=== PATIENT | female | born 1940 | race Caucasian/White ===

== ENCOUNTER 2018-07-11 04:16 | Emergency (ER) | payer MEDICARE, OTHER ==
[~2018-07-11] VITALS: Ht 147.3 cm; Wt 41.7 kg
--- OUTSIDE RECORDS SUMMARY | 2018-07-11 04:18 | XMS REPORT | Clinical Summary ---
Author Author [facility] Address Unknown Phone Unavailable Care Team Providers Care Control Systems Drafting Officer Name Role Phone Sophy Frank MD PCP Unavailable Allergies Comments Active Allergy Reactions Severity Noted Date Lactase Diarrhea 09/07/2013 Medications End Date Status Medication Sig Dispensed Refills Start Date Active cholecalciferol, vitamin Take 1,000 0 D3, 1,000 unit capsule Units by mouth daily. Active fenofibrate (TRICOR) 145 Take 145 mg 0 MG tablet by mouth daily. Active fexofenadine (ESTELA) Take 180 mg 0 180 MG tablet by mouth daily. Active fluticasone (FLOVENT Inhale 1 puff 0 DISKUS) 50 mcg/actuation by mouth via diskus inhaler inhaler 2 (two) times daily. Active lisinopril Take 40 mg by 0 (PRINIVIL,ZESTRIL) 40 MG mouth daily . 7 tablet Active spironolactone Take 25 mg by 0 (ALDACTONE) 25 MG tablet mouth 2 (two) 7 times daily . 09/13/2018 Active aspirin 81 MG chewable Take 1 tablet 30 tablet 1 tablet (81 mg total) 8 by mouth daily. 09/12/2018 Active carvedilol (COREG) 6.25 Take 1 tablet 60 tablet 1 MG tablet (6.25 mg 8 total) by mouth 2 (two) times daily. 09/12/2017 Discontinued atenolol (TENORMIN) 25 MG Take 25 mg by 0 tablet mouth 2 (two) times daily . 09/10/2017 Discontinued calcium carbonate-vitamin Take 1 tablet 0 D3 (CALCIUM-VITAMIN D) by mouth 2 500 mg(1,250mg) -200 unit (two) times per tablet daily with breakfast and dinner. 09/12/2017 Discontinued lisinopril-hydrochlorothi Take 1 tablet 0 azide by mouth (PRINZIDE,ZESTORETIC) daily. 20-12.5 mg per tablet 09/11/2017 Discontinued kqqy-zeqvqbekkdzye-crzvop Take 1 tablet 0 ls (THERAGRAN-M) 9 mg by mouth iron-400 mcg Tab tablet daily. 09/10/2017 Discontinued azelastine (OPTIVAR) 0.05 1 drop. 0 08/27/201 % ophthalmic solution 8 Active Problems Problem Noted Date Acute Hypertensive encephalopathy resolved 09/11/2017 Hypertensive urgency 09/11/2017 Hyperlipidemia 09/11/2017 Chronic diastolic heart failure 09/11/2017 Demand ischemia 09/11/2017 Elevated troponin 09/10/2017 Transient amnesia resolved 09/10/2017 Resolved Problems Problem Noted Date Resolved Date Hypertensive emergency 09/11/2017 09/11/2017 Hypertensive emergency 09/10/2017 09/11/2017 Headache 09/10/2017 09/11/2017 Encounters Care Team Description Date Type Specialty Marlyn Aranda MD Rivera, MD Jabier Thomas, Boris Guadarrama MD Hypertensive emergency (Primary Dx); Elevated troponin; Acute combined systolic and diastolic congestive heart failure (HCC); Acute memory impairment; Hypertensive encephalopathy; Acute intractable headache, unspecified headache type 09/10/2017 Emergency Cardiology - 09/12/2017 09/10/2017 Orders Only General Internal Medicine after 07/10/2017 Family History Medical History Relation Name Comments Diabetes Brother Heart disease Brother Diabetes Father Diabetes Mother Relation Name Status Comments Brother Father Mother Social History Date Tobacco Use Types Packs/Day Years Used Never Smoker Alcohol Use Drinks/Week oz/Week Comments No Sex Assigned at Date Recorded Not on file Industry Job Start Date Occupation Not on file Not on file Not on file Travel End Travel History Travel Start No recent travel history available. Last Filed Vital Signs Time Taken Vital Sign Reading 09/12/2017 7:00 AM CDT Blood Pressure 116/65 09/12/2017 7:00 AM CDT Pulse 67 09/12/2017 7:00 AM CDT Temperature 36.7 C (98 F) 09/12/2017 7:00 AM CDT Respiratory Rate 18 09/12/2017 7:00 AM CDT Oxygen Saturation 97% - Inhaled Oxygen - Concentration 09/12/2017 7:00 AM CDT Weight 41.1 kg (90 lb 8 oz) 09/10/2017 10:00 PM CDT Height 147.3 cm (4' 10") 09/12/2017 7:00 AM CDT Body Mass Index 18.91 Plan of Treatment Not on file Procedures Comments Procedure Name Priority Date/Time Associated Diagnosis RHYTHM STRIP - SCAN 09/13/2017 11:30 AM CDT ECHOCARDIOGRAM REPORT - 09/12/2017 SCAN 7:50 AM CDT 2D ECHO W/ DOPPLER STAT 09/11/2017 (CW/PW/COLOR) 5:35 PM CDT TROPONIN I Routine 09/11/2017 10:56 AM CDT CRITICAL CARE Routine 09/11/2017 8:16 AM CDT MR BRAIN WITHOUT IV STAT 09/11/2017 CONTRAST 6:39 AM CDT TROPONIN I Routine 09/11/2017 1:29 AM CDT HEMOGLOBIN A1C AP Routine 09/10/2017 8:03 PM CDT LIPID PANEL Routine 09/10/2017 8:03 PM CDT VITAMIN B12 AND FOLATE STAT 09/10/2017 8:02 PM CDT TSH STAT 09/10/2017 8:02 PM CDT ECG 12-LEAD STAT 09/10/2017 4:49 PM CDT URINALYSIS W/ MICROSCOPIC STAT 09/10/2017 4:34 PM CDT CBC W/PLT COUNT & AUTO STAT 09/10/2017 DIFFERENTIAL 4:33 PM CDT PT/APTT STAT 09/10/2017 4:33 PM CDT CBC W/PLT COUNT & AUTO STAT 09/10/2017 DIFFERENTIAL 4:33 PM CDT TROPONIN I STAT 09/10/2017 4:33 PM CDT B-TYPE NATRIURETIC FACTOR STAT 09/10/2017 (BNP) 4:33 PM CDT MAGNESIUM STAT 09/10/2017 4:33 PM CDT BASIC METABOLIC PANEL (7) STAT 09/10/2017 4:33 PM CDT XR CHEST 1 VIEW STAT 09/10/2017 PORTABLE/BEDSIDE 2:[address] BRAIN WITHOUT IV STAT 09/10/2017 CONTRAST 2:15 PM CDT after 07/10/2017 Results * RHYTHM STRIP - SCAN (09/13/2017 11:30 AM CDT) Narrative Performed At * ECHOCARDIOGRAM REPORT - SCAN (09/12/2017 7:50 AM CDT) Narrative Performed At * 2D Echo W/Doppler(CW/PW/Color) (09/11/2017 5:35 PM CDT) Ejection Fraction [facility] Narrative Performed At Transthoracic Echocardiography Report (TTE) [facility] Demographics [facility] Patient NameNATALIE FELIX Date of Study 09/11/2017 ALLISON GenderFemale Visit [id number] RaceCaucasian Number [id number] Number Date of 1940 Referring Carlos Yifan sosa MD Age 77 year(s) Clerical Adjuster Roxann Chandra [facility] Vasiliy Garcia MD FellowANGELICA Cohn Procedure Type of Study TTE procedure:2DECHO W DOPPLER(CW/PW/COLOR) (STAT) Indications:Acute Chest Pain/ Suspected CAD. Clinical History HGB 13.4 HCT 41.4 % HLD, HTN, Pneumonia, CHF, diastolic Height: 58 inches Weight: 40.82 kg (90 lbs) BSA: 1.3 m^2 BMI: 18.81 kg/m^2 HR: 65 bpm BP: 124/67 mmHg Summary Regular sinus rhythm during the exam. The left ventricle is chamber size (by PSLAX dimension) is normal (female - LVIDd 3.8-5.2cm) . No evidence of LV hypertrophy. All of the LV segments contract normally . Global LV systolic function normal . LVEF by Lopez's method of disk assessment is normal (60%) . Grade 1 diastolic dysfunction (impaired relaxation and low-normal LA pressure). No significant pericardial effusion is visualized. The estimated RA pressure by IVC dynamics 5-10mmHg . The right ventricular chamber size and systolic function are within normal limits. Normal TV structure and function. Mild tricuspid regurgitation. Estimated peak systolic PA pressure is 30-35 mmHg . Signature Findings Technical Quality: Technically adequate exam. Rhythm/BPRegular sinus rhythm during the exam. Left Ventricle The left ventricle is chamber size (by PSLAX dimension) is normal (female - LVIDd 3.8-5.2cm) . No evidence of LV hypertrophy. All of the LV segments contract normally . Global LV systolic function normal . LVEF by Lopez's method of disk assessment is normal (60%) . Grade 1 diastolic dysfunction (impaired relaxation and low-normal LA pressure). Left AtriumLA size is normal . Right VentricleThe right ventricular chamber size and systolic function are within normal limits. Right Atrium RA size is probably normal based on available views. Aortic Valve Normal AoV structure and function. Mitral Valve Normal MV structure and function. Tricuspid ValveNormal TV structure and function. Mild tricuspid regurgitation. Estimated peak systolic PA pressure is 30-35 mmHg . Pulmonic Valve PV is not well visualized; function appears normal by Doppler visualized. AortaAortic root size (SInus of Valsalva diameter) is normal . PericardiumNo significant pericardial effusion is visualized. IVC/SVC/PA/PV/PleuralThe estimated RA pressure by IVC dynamics 5-10mmHg . Chambers/Structures Left Atrium LA Volume: 32.83 ml LA Area: 13.26 cm^2 LA Vol. Index: 25 ml/m^2 Left Ventricle LVIDd: 4.26 cm LVIDs: 2.29 cm LV Septum Diastolic: 0.91 cm LV PW Diastolic: 0.93 cm LV FS: 46.2 % LVOT Diameter: 1.85 cm Doppler/Quantitative Measurements Mitral Valve MV Peak E-Wave: 0.48 m/sMV Peak A-Wave: 0.72 m/s E/A Ratio: 0.67 Peak Gradient: 0.93 mmHg MV Jasen. Peak: Aortic Valve Peak Velocity: 1.26 m/sMean Velocity: 0.89 m/s Peak Gradient: 6.36 mmHg Mean Gradient: 3.51 mmHg AV Area (continuity): 2.45 cm^2 AV VTI: 27.92 cm AV DVI: 0.91 LVOT Peak Velocity: 1.21 m/s Peak Gradient: 5.85 mmHg Mean Velocity: 0.83 m/s Mean Gradient: 3.14 mmHg LVOT Diameter: 1.85 cmLVOT VTI: 25.45 cm LVOT Area: 2.69 cm^2LVOT SV:68.38 ml LVOT CO: 4.44 l/min LVOT CI: 3.42 l/min/m^2 Tricuspid Valve TR Velocity: 2.42 m/s TR Gradient: 23.48 mmHg Procedure Note Interface, External Ris In - 09/12/2017 7:09 AM CDT Transthoracic Echocardiography Report (TTE) Demographics Patient Name NATALIE FELIX Date of Study 09/11/2017 ALLISON Gender Female Visit Number [id number] Race Room Number [id number] Number Date of 1940 Referring Carlos Wan MD Age 77 year(s) Clerical Adjuster Roxann Chandra RDCS Interpreting Erasto Hernandez, Physician Fellow ANGELICA Cohn Procedure Type of Study TTE procedure:2DECHO W DOPPLER(CW/PW/COLOR) (STAT) Indications:Acute Chest Pain/ Suspected CAD. Clinical History HGB 13.4 HCT 41.4 % HLD, HTN, Pneumonia, CHF, diastolic Height: 58 inches Weight: 40.82 kg (90 lbs) BSA: 1.3 m^2 BMI: 18.81 kg/m^2 HR: 65 bpm BP: 124/67 mmHg Summary Regular sinus rhythm during the exam. The left ventricle is chamber size (by PSLAX dimension) is normal (female - LVIDd 3.8-5.2cm) . No evidence of LV hypertrophy. All of the LV segments contract normally . Global LV systolic function normal . LVEF by Lopez's method of disk assessment is normal (60%) . Grade 1 diastolic dysfunction (impaired relaxation and low-normal LA pressure). No significant pericardial effusion is visualized. The estimated RA pressure by IVC dynamics 5-10mmHg . The right ventricular chamber size and systolic function are within normal limits. Normal TV structure and function. Mild tricuspid regurgitation. Estimated peak systolic PA pressure is 30-35 mmHg . Signature Findings Technical Quality: Technically adequate exam. Rhythm/BP Regular sinus rhythm during the exam. Left Ventricle The left ventricle is chamber size (by PSLAX dimension) is normal (female - LVIDd 3.8-5.2cm) . No evidence of LV hypertrophy. All of the LV segments contract normally . Global LV systolic function normal . LVEF by Lopez's method of disk assessment is normal (60%) . Grade 1 diastolic dysfunction (impaired relaxation and low-normal LA pressure). Left Atrium LA size is normal . Right Ventricle The right ventricular chamber size and systolic function are within normal limits. Right Atrium RA size is probably normal based on available views. Aortic Valve Normal AoV structure and function. Mitral Valve Normal MV structure and function. Tricuspid Valve Normal TV structure and function. Mild tricuspid regurgitation. Estimated peak systolic PA pressure is 30-35 mmHg . Pulmonic Valve PV is not well visualized; function appears normal by Doppler visualized. Aorta Aortic root size (SInus of Valsalva diameter) is normal . Pericardium No significant pericardial effusion is visualized. IVC/SVC/PA/PV/Pleural The estimated RA pressure by IVC dynamics 5-10mmHg . Chambers/Structures Left Atrium LA Volume: 32.83 ml LA Area: 13.26 cm^2 LA Vol. Index: 25 ml/m^2 Left Ventricle LVIDd: 4.26 cm LVIDs: 2.29 cm LV Septum Diastolic: 0.91 cm LV PW Diastolic: 0.93 cm LV FS: 46.2 % LVOT Diameter: 1.85 cm Doppler/Quantitative Measurements Mitral Valve MV Peak E-Wave: 0.48 m/s MV Peak A-Wave: 0.72 m/s E/A Ratio: 0.67 Peak Gradient: 0.93 mmHg MV Jasen. Peak: Aortic Valve Peak Velocity: 1.26 m/s Mean Velocity: 0.89 m/s Peak Gradient: 6.36 mmHg Mean Gradient: 3.51 mmHg AV Area (continuity): 2.45 cm^2 AV VTI: 27.92 cm AV DVI: 0.91 LVOT Peak Velocity: 1.21 m/s Peak Gradient: 5.85 mmHg Mean Velocity: 0.83 m/s Mean Gradient: 3.14 mmHg LVOT Diameter: 1.85 cm LVOT VTI: 25.45 cm LVOT Area: 2.69 cm^2 LVOT SV:68.38 ml LVOT CO: 4.44 l/min LVOT CI: 3.42 l/min/m^2 Tricuspid Valve TR Velocity: 2.42 m/s TR Gradient: 23.48 mmHg Performing Organization Address City/State/Zipcode Phone Number [facility] * Troponin I (09/11/2017 10:56 AM CDT) Only the most recent of 3 results within the time period is included. Troponin I 0.19 (H) 0.00 - 0.03 ng/mL [facility] Specimen Blood Narrative Performed At Troponin I (TnI) levels must be interpreted in the context of the presenting [facility] symptoms and the clinical findings. Elevated TnI levels indicate myocardial [facility] damage, but are not specific for ischemic heart disease. Elevated TnI levels are seen in patients with other cardiac conditions (including myocarditis and congestive heart failure), and slight TnI elevations occur in patients with other conditions, including sepsis, renal failure, acidosis, acute neurological disease, and persistent tachyarrhythmia. Performing Organization Address City/State/Zipcode Phone Number [facility] [address] [place] [address] [facility] * CRITICAL CARE (09/11/2017 8:16 AM CDT) Narrative Performed At Marlyn Aranda MD 09/11/20178:16 AM Critical Care Performed by: MARLYN ARANDA Authorized by: MARLYN ARANDA Total critical care time: 35 minutes Critical care time was exclusive of separately billable procedures and treating other patients and teaching time. Critical care was necessary to treat or prevent imminent or life-threatening deterioration of the following conditions: FACILITY SERVICE ASSOCIATE failure or compromise and circulatory failure. Critical care was time spent personally by me on the following activities: blood draw for specimens, development of treatment plan with patient or surrogate, discussions with consultants, discussions with primary provider, interpretation of cardiac output measurements, evaluation of patient's response to treatment, examination of patient, ordering and performing treatments and interventions, ordering and review of laboratory studies, obtaining history from patient or surrogate, ordering and review of radiographic studies, pulse oximetry, re-evaluation of patient's condition and review of old charts. * MR brain without IV contrast (09/11/2017 6:39 AM CDT) Narrative Performed At FINAL REPORT [facility] MRI brain without contrast 09/11/2017 7:22 AM CLINICAL INDICATION: Encephalopathy TECHNIQUE: Multiplanar, multisequence MR imaging of the brain was performed utilizing the following imaging sequences: Axial T1, T2, FLAIR, GRE, and DWI; sagittal and coronal T1-weighted images. COMPARISON: None available FINDINGS: There is no acute infarct, hematoma, mass, extra-axial collection, or hydrocephalus. There are chronic bilateral globus pallidus infarcts, potentially reflecting prior carbon monoxide exposure. There is generalized parenchymal volume loss. Normal appearing flow-voids are present in the major intracranial vascular structures. 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 The pineal region is unremarkable. The craniovertebral junction is intact. The cerebellar tonsils lie up to 3 mm below the level of the foramen magnum but maintain a rounded appearance. The orbits, face, and skull base are without worrisome finding. IMPRESSION: 1. No acute intracranial abnormality. 2. 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 Signed: Jeremy Marie MD Report Verified Date/Time:09/11/2017 07:25:53 Reading Location: [address] Neuro Reading Room Procedure Note Interface, External Ris In - 09/11/2017 7:28 AM CDT FINAL REPORT MRI brain without contrast 09/11/2017 7:22 AM CLINICAL INDICATION: Encephalopathy TECHNIQUE: Multiplanar, multisequence MR imaging of the brain was performed utilizing the following imaging sequences: Axial T1, T2, FLAIR, GRE, and DWI; sagittal and coronal T1-weighted images. COMPARISON: None available FINDINGS: There is no acute infarct, hematoma, mass, extra-axial collection, or hydrocephalus. There are chronic bilateral globus pallidus infarcts, potentially reflecting prior carbon monoxide exposure. There is generalized parenchymal volume loss. Normal appearing flow-voids are present in the major intracranial vascular structures. 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 The pineal region is unremarkable. The craniovertebral junction is intact. The cerebellar tonsils lie up to 3 mm below the level of the foramen magnum but maintain a rounded appearance. The orbits, face, and skull base are without worrisome finding. IMPRESSION: 1. No acute intracranial abnormality. 2. 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 Signed: Jeremy Marie MD Report Verified Date/Time: 09/11/2017 07:25:53 Reading Location: [address] Neuro Reading Room Performing Organization Address City/State/Zipcode Phone Number GE RIS * Hemoglobin A1c (09/10/2017 8:03 PM CDT) Hemoglobin A1C 5.7 4.3 - 6.1 % [facility] [place] Specimen Blood Performing Organization Address City/[facility] Phone Number [address] [address] [phone] [place] [address] * Lipid panel (09/10/2017 8:03 PM CDT) Triglycerides 73 mg/dL [facility] Cholesterol 148 mg/dL [facility] HDL 46 mg/dL [facility] LDL Calculated 87 mg/dL [facility] Specimen Blood Narrative Performed At Triglyceride Reference Range: [facility] Low Risk <[address] [facility] [id number] High Risk 200-499 Very High Risk>=500 Cholesterol Reference Range: Low Risk <200 [id number] High Risk>240 HDL Cholesterol Reference Range: Low Risk >=60 High Risk <40 LDL Cholesterol Reference Range: Optimal<100 Near [id number] [id number] Very High >=190 Performing Organization Address [facility] Hospital[facility] Phone Number [address] [address] [facility] * Vitamin B12 and Folate (09/10/2017 8:02 PM CDT) Vitamin B12 1,349 (H) 213 - 816 pg/mL [facility] Folate 16.5 >=7.0 ng/mL [facility] Specimen Blood - Arm, Left Performing Organization Address City/[facility] Phone Number [address] [address] [phone] [place] [address] * TSH (09/10/2017 8:02 PM CDT) TSH 1.12 0.35 - 4.94 uIU/mL [facility] Specimen Blood - Arm, Left Performing Organization Address [facility] Phone Number [address] [address] [facility] * ECG 12 lead (09/10/2017 4:49 PM CDT) Narrative Performed At Ventricular Rate 81 BPM GE MUSE Atrial Rate 81 BPM P-R Interval 162 ms QRS Duration 84 ms Q-T Interval 372 ms QTC Calculation(Bazett) 432 ms P [place] 70 degrees R [place] 29 degrees T [place] 55 degrees Normal sinus rhythm Normal ECG When compared with ECG of 07-SEP-2013 01:02, No significant change was found Confirmed by MD KAUR JOSEPH P ([id number]) on 09/12/2017 6:25:50 AM Procedure Note Interface, External Ris In - 09/12/2017 6:25 AM CDT Ventricular Rate 81 BPM Atrial Rate 81 BPM P-R Interval 162 ms QRS Duration 84 ms Q-T Interval 372 ms QTC Calculation(Bazett) 432 ms P [place] 70 degrees R [place] 29 degrees T [place] 55 degrees Normal sinus rhythm Normal ECG When compared with ECG of 07-SEP-2013 01:02, No significant change was found Confirmed by MD KAUR JOSEPH P ([id number]) on 09/12/2017 6:25:50 AM Performing Organization Address City/State/[facility] Phone Number GE MUSE * Urinalysis w/Microscopic (09/10/2017 4:34 PM CDT) Color, UA Light Yellow [facility] Clarity, UA Clear [facility] Specific [place], UA 1.005 1.001 - 1.035 [facility] pH, UA 7.0 5.0 - 8.0 [facility] Protein, UA Negative Negative [facility] Glucose, UA Negative Negative [facility] Ketones, UA Negative Negative [facility] Bilirubin, UA Negative Negative [facility] Blood, UA Trace (A) Negative [facility] Nitrite, UA Negative Negative [facility] Leukocytes, UA Negative Negative [facility] Urobilinogen, UA 0.2 0.2 - 1.0 mg/dL [facility] RBC, UA 2 /HPF [facility] WBC, UA 0 /HPF [facility] [place] Specimen Source Urine, Voided [facility] Specimen Urine - Urine, Voided Performing Organization Address [facility]code Phone Number [facility] [address] [place] [address] [facility] * PT/aPTT (09/10/2017 4:33 PM CDT) Protime 14.2 11.7 - 14.7 seconds [facility] INR 1.1 <=5.9 [facility] PTT 24.4 22.5 - 36.0 seconds [facility] Specimen Blood - Arm, Left Narrative Performed At RECOMMENDED COUMADIN/WARFARIN INR THERAPY RANGES [facility] STANDARD DOSE: 2.0 - 3.0 Includes: PROPHYLAXIS for venous thrombosis, [facility] systemic embolization; TREATMENT for venous thrombosis and/or pulmonary embolus. HIGH RISK: Target INR is 2.5-3.5 for patients with mechanical heart valves. Performing Organization Address City/[facility] Hospitalcode Phone Number [facility] [address] [place] [address] [facility] * CBC with platelet count + automated diff (09/10/2017 4:33 PM CDT) WBC 9.1 3.5 - 10.5 K/L [facility] RBC 4.31 3.93 - 5.22 M/L [facility] Hemoglobin 13.4 11.2 - 15.7 GM/DL [facility] Hematocrit 41.4 34.1 - 44.9 % [facility] MCV 96.1 (H) 79.4 - 94.8 fL [facility] MCH 31.1 25.6 - 32.2 pg [facility] MCHC 32.4 32.2 - 35.5 GM/DL [facility] RDW 12.7 11.7 - 14.4 % [facility] Platelets 217 150 - 450 K/CU MM [facility] MPV 12.0 9.4 - 12.3 fL [facility] nRBC 0 0 - 0 /100 WBC [facility] % Neutros 82 % [facility] % Lymphs 12 % [facility] % Monos 5 % [facility] % Eos 0 % [facility] % Baso 0 % [facility] # Neutros 7.43 (H) 1.56 - 6.13 K/L [facility] # Lymphs 1.11 (L) 1.18 - 3.74 K/L [facility] # Monos 0.45 (H) 0.24 - 0.36 K/L [facility] # Eos 0.00 (L) 0.04 - 0.36 K/L [facility] # Baso 0.02 0.01 - 0.08 K/L [facility] Immature 0 0 - 1 % [facility] Granulocytes-Relative [facility] Specimen Blood - Arm, Left Performing Organization Address City/[facility] [place] [address] [facility] * B-type Natriuretic Factor (BNP) (09/10/2017 4:33 PM CDT) BNP 614 (H) 0 - 100 pg/mL [facility] Specimen Blood - Arm, Left Performing Organization Address City/[facility]/[place] [address] [facility] * Magnesium (09/10/2017 4:33 PM CDT) Magnesium 2.1 1.6 - 2.6 mg/dL [facility] Specimen Blood - Arm, Left Performing Organization Address [facility]/Zipcode Phone Number [facility] [address] [place] [address] [facility] * Basic Metabolic Panel (09/10/2017 4:33 PM CDT) Sodium 140 136 - 145 meq/L [facility] Potassium 4.7 3.5 - 5.1 meq/L [facility] Chloride 106 98 - 107 meq/L [facility] CO2 26 22 - 29 meq/L [facility] BUN 23 (H) 7 - 21 mg/dL [facility] Creatinine 0.90 0.57 - 1.25 mg/dL [facility] Glucose 126 (H) 70 - 105 mg/dL [facility] Calcium 10.1 8.4 - 10.2 mg/dL [facility] EGFR 61Comment: ESTIMATED GFR IS mL/min/1.73 sq m [facility] NOT ACCURATE CREATININE [facility] CLEARANCE IN PREDICTING GLOMERULAR FILTRATION RATE. ESTIMATED GFR IS NOT APPLICABLE FOR DIALYSIS PATIENTS. Specimen Blood - Arm, Left Performing Organization Address [facility] Hospitalcode Phone Number [facility] [address] [place] [address] [facility] * XR chest 1 view portable/bedside (09/10/2017 2:42 PM CDT) Narrative Performed At FINAL REPORT [facility] TECHNIQUE: Frontal chest radiograph dated 09/10/2017 CLINICAL HISTORY: Chest pain COMPARISON STUDY: None Impression: Several small nodules and linear atelectasis is seen in the lateral left upper lobe likely post infectious/inflammatory. Several small nodules are also seen in the right upper lobe. No pleural effusion or pneumothorax. Cardiomediastinal silhouette is normal in size. No pulmonary edema. No fracture. Signed: Alexis Benito MD Report Verified Date/Time:09/10/2017 14:54:49 Reading Location: [facility] Radiology Reading Room Procedure Note Interface, External Ris In - 09/10/2017 2:57 PM CDT FINAL REPORT TECHNIQUE: Frontal chest radiograph dated 09/10/2017 CLINICAL HISTORY: Chest pain COMPARISON STUDY: None Impression: Several small nodules and linear atelectasis is seen in the lateral left upper lobe likely post infectious/inflammatory. Several small nodules are also seen in the right upper lobe. No pleural effusion or pneumothorax. Cardiomediastinal silhouette is normal in size. No pulmonary edema. No fracture. Signed: Alexis Benito MD Report Verified Date/Time: 09/10/2017 14:54:49 Reading Location: [facility] Radiology Reading Room Performing Organization Address City/State/Zipcode Phone Number [facility] * CT brain without IV contrast (09/10/2017 2:15 PM CDT) Narrative Performed At FINAL REPORT [facility] Head without contrast CLINICAL HISTORY: Headache TECHNIQUE: Contiguous axial images through the head without contrast. This exam was performed according to the departmental dose optimization program which includes automated exposure control, adjustment of the mA and/or kV according to the patient size, and/or use of an iterative reconstruction technique. COMPARISON: 09/08/2013 FINDINGS: There is no CT evidence of acute infarct or intracranial hemorrhage. Generalized parenchymal volume loss is again seen without hydrocephalus or midline shift. Low lying cerebellar tonsils. Midline are again seen. There are no extra-axial fluid collections. The skull is intact. The visualized paranasal sinuses are well-aerated. Chronic hypertrophic changes and subluxations of the bilateral temporomandibular joints are again seen. IMPRESSION: No CT evidence of acute infarct, hemorrhage, or hydrocephalus. Other chronic-appearing findings as described above are grossly unchanged. Signed: Alfredo Perales MD Report Verified Date/Time:09/10/2017 14:18:16 Reading Location: [facility] Reading Room Procedure Note Interface, External Ris In - 09/10/2017 2:20 PM CDT FINAL REPORT CT Head without contrast CLINICAL HISTORY: Headache TECHNIQUE: Contiguous axial images through the head without contrast. This exam was performed according to the departmental dose optimization program which includes automated exposure control, adjustment of the mA and/or kV according to the patient size, and/or use of an iterative reconstruction technique. COMPARISON: 09/08/2013 FINDINGS: There is no CT evidence of acute infarct or intracranial hemorrhage. Generalized parenchymal volume loss is again seen without hydrocephalus or midline shift. Low lying cerebellar tonsils. Midline are again seen. There are no extra-axial fluid collections. The skull is intact. The visualized paranasal sinuses are well-aerated. Chronic hypertrophic changes and subluxations of the bilateral temporomandibular joints are again seen. IMPRESSION: No CT evidence of acute infarct, hemorrhage, or hydrocephalus. Other chronic-appearing findings as described above are grossly unchanged. Signed: Alfredo Perales MD Report Verified Date/Time: 09/10/2017 14:18:16 Reading Location: [facility] Radiology Reading Room Performing Organization Address City/State/Zipcode Phone Number GE RIS after 07/10/2017 Insurance Payer Benefit Subscriber ID Type Phone Address Plan / Group [employer]ARE KELSEYCARE xxxxxxxxxxx MEDICARE ADV CIGNA - MGD CARE CIGNA xxxxxxxxx HMO/POS HMO/POS/OP EN ACCESS OTHER-COMMERCIAL GENERIC xxxxxxxxx COMMERCIAL Advance Directives For more information, please contact: [facility] [address] [place] [address] Date Inactivated Comments Code Status Date Activated 09/12/2017 2:59 PM Full Code 09/10/2017 8:13 PM This code status was determined by: Patient 09/08/2013 4:38 PM All possible means of support, including: cardiac massage, mechanical ventilation, and defibrillation will be used to support life. Code ONE 09/07/2013 6:24 AM
--- OUTSIDE RECORDS SUMMARY | 2018-07-11 04:19 | XMS REPORT ---
Author Author [facility] Address Unknown Phone Unavailable Care Team Providers Care Teletypewriter Installer Name Role Phone LUKAS ARANDA Unavailable Unavailable Problems This patient has no known problems. Allergies, Adverse Reactions, Alerts This patient has no known allergies or adverse reactions. Medications This patient has no known medications. Results Test Description Test Time Test Comments Text Results Atomic Results Result Comments TROPONIN I 2017-09-11 11:36:00 TROPONIN I (BEAKER) (test nxfj=300) 0.19 ng/mL 0.00-0.03 Troponin I (TnI) levels must be interpreted in the context of the presenting sym ptoms and the clinical findings. Elevated TnI levels indicate myocardial damage, but are not specific for ischemic heart disease. Elevated TnI levels are seen in patients with other cardiac conditions (including myocarditis and congestive h eart failure), and slight TnI elevations occur in patients with other conditions , including sepsis, renal failure, acidosis, acute neurological disease, and per sistent tachyarrhythmia.MR, BRAIN, WITHOUT [id number] 07:25:00FINAL REPORT MRI brain without contrast 09/11/2017 7:22 AM CLINICAL INDICATION: Encephalopathy TECHNIQUE: Multiplanar, multisequence MR im aging of the brain was performed utilizing the following imaging sequences: Axia l T1, T2, FLAIR, GRE, and DWI; sagittal and coronal T1-weighted images. COMPARIS ON: None available FINDINGS: There is no acute infarct, hematoma, mass, extra-ax ial collection, or hydrocephalus. 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 There is generali zed parenchymal volume loss. Normal appearing flow-voids are present in the maral r intracranial vascular structures. 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 The pineal region is unremarkable. The craniovertebral junction is intact. The cerebellar tonsils lie up to 3 mm below the level of the foramen ma gnum but maintain a rounded appearance. The orbits, face, and skull base are wit hout worrisome finding. IMPRESSION: 1. No acute intracranial abnormality.2. Manager Case Management nathaniel bilateral globus pallidus infarcts. 3. Cerebellar tonsillar ectopia. Signed: Jeremy Ruiz Verified Date/Time: 09/11/2017 07:25:53 Reading Locat ion: [facility] B1 C013V Neuro Reading Room ONIN [id number] 02:18:00* Test Item Value Reference Range Comments TROPONIN I (BEAKER) (test wird=498) 0.27 ng/mL 0.00-0.03 Troponin I (TnI) levels must be interpreted in the context of the presenting sym ptoms and the clinical findings. Elevated TnI levels indicate myocardial damage, but are not specific for ischemic heart disease. Elevated TnI levels are seen in patients with other cardiac conditions (including myocarditis and congestive h eart failure), and slight TnI elevations occur in patients with other conditions , including sepsis, renal failure, acidosis, acute neurological disease, and per sistent tachyarrhythmia.[id number] 21:03:00* Test Item Value Reference Range Comments THYROID STIMULATING HORMONE (BEAKER) (test ufrv=091) 1.12 uIU/mL 0.35-4.94 VITAMIN B12 AND [id number] 21:03:00* Test Item Value Reference Range Comments VITAMIN B12 (BEAKER) (test lqyq=851) 1349 pg/mL 213-816 FOLATE (BEAKER) (test valy=270) 16.5 ng/mL >=7.0 HEMOGLOBIN [id number] 20:37:00* Test Item Value Reference Range Comments HEMOGLOBIN A1C (BEAKER) (test jhdd=333) 5.7 % 4.3-6.1 LIPID [id number] 20:26:00* Test Item Value Reference Range Comments TRIGLYCERIDES (BEAKER) (test yrou=227) 73 mg/dL CHOLESTEROL (BEAKER) (test zqij=293) 148 mg/dL HDL CHOLESTEROL (BEAKER) (test gvbj=161) 46 mg/dL LDL CHOLESTEROL CALCULATED (BEAKER) (test jmwn=671) 87 mg/dL Triglyceride Reference Range: Low Risk <150 Borderline 150-199 High Risk 200-499 Very High Risk >=500Cholesterol Reference Range: Low Risk <200 Borderline 200-239 High Risk >240HDL Cholesterol Reference Range: Low Risk >=60 High Risk <40LDL Cholesterol Reference Range: Optimal <100 Near Optimal 100-129 Borderline 130-159 High 160-189 Very High >=190 TROPONIN [id number] 17:20:00* Test Item Value Reference Range Comments TROPONIN I (BEAKER) (test vlmk=649) 0.26 ng/mL 0.00-0.03 Troponin I (TnI) levels must be interpreted in the context of the presenting sym ptoms and the clinical findings. Elevated TnI levels indicate myocardial damage, but are not specific for ischemic heart disease. Elevated TnI levels are seen in patients with other cardiac conditions (including myocarditis and congestive h eart failure), and slight TnI elevations occur in patients with other conditions , including sepsis, renal failure, acidosis, acute neurological disease, and per sistent tachyarrhythmia.B-TYPE NATRIURETIC FACTOR (BNP)2017-09-10 17:11:00* Test Item Value Reference Range Comments B-TYPE NATRIURETIC PEPTIDE (BEAKER) (test aeqd=524) 614 pg/mL 0-100 PT/[id number] 17:08:00* Test Item Value Reference Range Comments PROTIME (BEAKER) (test bixk=186) 14.2 seconds 11.7-14.7 INR (BEAKER) (test gyso=234) 1.1 <=5.9 PARTIAL THROMBOPLASTIN TIME (BEAKER) (test wwnc=916) 24.4 seconds 22.5-36.0 RECOMMENDED COUMADIN/WARFARIN INR THERAPY RANGESSTANDARD DOSE: 2.0 - 3.0 Inclu roberta: PROPHYLAXIS for venous thrombosis, systemic embolization; TREATMENT for gris ous thrombosis and/or pulmonary embolus.HIGH RISK: Target INR is 2.5-3.5 for pat ients with mechanical heart valves.CBC W/PLT COUNT & AUTO [id number] 17:07:00* Test Item Value Reference Range Comments WHITE BLOOD CELL COUNT (BEAKER) (test itzj=151) 9.1 K/ L 3.5-10.5 RED BLOOD CELL COUNT (BEAKER) (test azpl=742) 4.31 M/ L 3.93-5.22 HEMOGLOBIN (BEAKER) (test flbi=087) 13.4 GM/DL 11.2-15.7 HEMATOCRIT (BEAKER) (test tjyj=405) 41.4 % 34.1-44.9 MEAN CORPUSCULAR VOLUME (BEAKER) (test nlnt=974) 96.1 fL 79.4-94.8 MEAN CORPUSCULAR HEMOGLOBIN (BEAKER) (test zhjl=103) 31.1 pg 25.6-32.2 MEAN CORPUSCULAR HEMOGLOBIN CONC (BEAKER) (test yhfx=829) 32.4 GM/DL 32.2-35.5 RED CELL DISTRIBUTION WIDTH (BEAKER) (test qcbb=577) 12.7 % 11.7-14.4 PLATELET COUNT (BEAKER) (test nmxa=559) 217 K/CU MM 150-450 MEAN PLATELET VOLUME (BEAKER) (test gkre=289) 12.0 fL 9.4-12.3 NUCLEATED RED BLOOD CELLS (BEAKER) (test zwnh=238) 0 /100 WBC 0-0 NEUTROPHILS RELATIVE PERCENT (BEAKER) (test imcb=620) 82 % LYMPHOCYTES RELATIVE PERCENT (BEAKER) (test iqio=718) 12 % MONOCYTES RELATIVE PERCENT (BEAKER) (test acrm=999) 5 % EOSINOPHILS RELATIVE PERCENT (BEAKER) (test etko=132) 0 % BASOPHILS RELATIVE PERCENT (BEAKER) (test iqag=158) 0 % NEUTROPHILS ABSOLUTE COUNT (BEAKER) (test apys=565) 7.43 K/ L 1.56-6.13 LYMPHOCYTES ABSOLUTE COUNT (BEAKER) (test povs=526) 1.11 K/ L 1.18-3.74 MONOCYTES ABSOLUTE COUNT (BEAKER) (test ppqe=542) 0.45 K/ L 0.24-0.36 EOSINOPHILS ABSOLUTE COUNT (BEAKER) (test tmke=384) 0.00 K/ L 0.04-0.36 BASOPHILS ABSOLUTE COUNT (BEAKER) (test yeju=740) 0.02 K/ L 0.01-0.08 IMMATURE GRANULOCYTES-RELATIVE PERCENT (BEAKER) (test kybl=2432) 0 % 0-1 [id number] 17:05:00* Test Item Value Reference Range Comments MAGNESIUM (BEAKER) (test xjji=381) 2.1 mg/dL 1.6-2.6 BASIC METABOLIC [id number] 17:05:00* Test Item Value Reference Range Comments SODIUM (BEAKER) (test ywdm=220) 140 meq/L 136-145 POTASSIUM (BEAKER) (test evqo=199) 4.7 meq/L 3.5-5.1 CHLORIDE (BEAKER) (test ofhz=557) 106 meq/L 98-107 CO2 (BEAKER) (test eojz=185) 26 meq/L 22-29 BLOOD UREA NITROGEN (BEAKER) (test kuqr=601) 23 mg/dL 7-21 CREATININE (BEAKER) (test mfxk=083) 0.90 mg/dL 0.57-1.25 GLUCOSE RANDOM (BEAKER) (test iset=825) 126 mg/dL 70-105 CALCIUM (BEAKER) (test lddm=279) 10.1 mg/dL 8.4-10.2 EGFR (BEAKER) (test atqc=7668) 61 mL/min/1.73 sq m ESTIMATED GFR IS NOT ACCURATE CREATININE CLEARANCE IN PREDICTING GLOMERULAR FILTRATION RATE. ESTIMATED GFR IS NOT APPLICABLE FOR DIALYSIS PATIENTS. URINALYSIS W/ [id number] 16:58:00* Test Item Value Reference Range Comments COLOR (BEAKER) (test zhke=342) Light Yellow CLARITY (BEAKER) (test aavf=865) Clear SPECIFIC GRAVITY UA (BEAKER) (test stxr=001) 1.005 1.001-1.035 PH UA (BEAKER) (test qeca=358) 7.0 5.0-8.0 PROTEIN UA (BEAKER) (test yetd=596) Negative Negative GLUCOSE UA (BEAKER) (test ltex=244) Negative Negative KETONES UA (BEAKER) (test qnsq=353) Negative Negative BILIRUBIN UA (BEAKER) (test gdfx=083) Negative Negative BLOOD UA (BEAKER) (test rhus=579) Trace Negative NITRITE UA (BEAKER) (test nzfg=493) Negative Negative LEUKOCYTE ESTERASE UA (BEAKER) (test kwja=289) Negative Negative UROBILINOGEN UA (BEAKER) (test hgmn=350) 0.2 mg/dL 0.2-1.0 RBC UA (BEAKER) (test crjf=901) 2 /HPF WBC UA (BEAKER) (test pheq=188) 0 /HPF SOURCE(BEAKER) (test lqfx=3097) Urine, Voided RAD, CHEST, 1 VIEW, NON [id number] 14:54:00Reason for exam:->chest painFINAL REPORT TECHNIQUE: Frontal chest radiograph dated CLINICAL HISTORY: Chest pain COMPARISON STUDY: None Impression:Several small nodules and linear atelectasis is seen in the lateral left upper lobe like ly post infectious/inflammatory. Several small nodules are also seen in the righ t upper lobe. No pleural effusion or pneumothorax. Cardiomediastinal silhouette is normal in size. No pulmonary edema. No fracture. Signed: Radha Schneider Verified Date/Time: 09/10/2017 14:54:49 Reading Location: [facility] Radiolog y Reading Room 18 02:[address], BRAIN, WITHOUT [id number] 14:18:00Reason for exam:-> headacheWhat is the patient's sedation requirement?->No SedationFINAL REPORT CT Head without contrast CLINICAL HISTORY: Headache TECHNIQUE: Contiguous axial images through the head without contrast. This exam was performed according to the departmental dose optimization program which includes automated exposure control, adjustment of the mA and/or kV according to the patient size, and/or use of an iterative reconstruction technique. COMP ARISON: 09/08/2013 FINDINGS: There is no CT evidence of acute infarct or intracra nial hemorrhage. Generalized parenchymal volume loss is again seen without hydro cephalus or midline shift. Low lying cerebellar tonsils. Midline are again seen. There are no extra-axial fluid collections. The skull is intact. The visualized paranasal sinuses are well-aerated. Chronic hypertrophic changes and subluxatio ns of the bilateral temporomandibular joints are again seen. IMPRESSION: No CT e vidence of acute infarct, hemorrhage, or hydrocephalus. Other chronic-appearing findings as described above are grossly unchanged. Signed: Alfredo Wiseman MDRepor t Verified Date/Time: 09/10/2017 14:18:16 Reading Location: [facility] Vendavo logy Reading Room Electronically signed by: ALFREDO WISEMAN M.D. on 018 02:18 PM
[2018-07-11 04:47] LABS: ANION GAP 14.1 mmol/L (8-16); CALCIUM 9.6 mg/dL (8.4-10.2); POTASSIUM 4.1 mmol/L (3.5-5.1)
[2018-07-11 05:00] LABS: CREATININE, SERUM 1.16 mg/dL (0.57-1.11)
== END 2018-07-11 05:25 | disposition home or self-care (01) ==
LOC: ER 04:16
DX: R79.89 Other specified abnormal findings of blood chemistry (principal); R94.4 Abnormal results of kidney function studies
CPT/HCPCS: 36415; 80048; 99283